=== PATIENT | female | born 1970 | race Caucasian/White ===

== ENCOUNTER 2020-06-22 13:06 | Outpatient (CLI) | payer OTHER, SELFPAY ==
--- NOTE | ~2020-06-22 | MMUS_ITS ---
EXAMINATION: MM diagnostic yarely BI w yosvany, US breast LT limited HISTORY: 2 left breast lumps TECHNIQUE: ML, MLO and CC 3-D tomosynthesis images of both breasts were performed and synthetic 2-D i mages were generated. CAD analysis was submitted and interpreted. High resolution targeted left breas t ultrasound was performed. COMPARISON: 10/10/2014, 07/01/2016 and 06/18/2019 bilateral digital mammogram examinations BREAST PARENCHYMAL COMPOSITION: There are scattered areas of fibroglandular density. FINDINGS: MAMMOGRAPHIC FINDINGS: There is stable mild fibroglandular asymmetry. No interval mass, architectural distortion, malignant calcification, skin thickening or retraction of either breast is evident since 06/18/2019 or 4. ULTRASOUND: No suspicious mass or shadowing is evident at the areas of clinical complaint of breast lump at 7:00 6 cm from the nipple and 9:00 near the nipple. IMPRESSION: 1. No mammographic evidence of malignancy 2. Routine mammographic screening is recommended. BI-RADS Category 2: Benign finding(s). Reviewed, dictated and finalized at location A. IMPRESSION: 1. No mammographic evidence of malignancy 2. Routine mammographic screening is recommended. BI-RADS Category 2: Benign finding(s).
== END 2020-06-22 13:07 | disposition home or self-care (01) ==
LOC: ANHIMG 13:11
DX: N63.20 Unspecified lump in the left breast, unspecified quadrant (principal)
CPT/HCPCS: 76642; 77062; 77066; G0279

== ENCOUNTER → 2021-06-19 11:36 | Outpatient (CLI) | payer OTHER, SELFPAY ==
--- NOTE | ~2021-06-19 | MM_ITS ---
EXAMINATION: MM screening yarely BI w yosvany HISTORY: Screening mammogram TECHNIQUE: Craniocaudal and mediolateral oblique 3-D tomosynthesis images were obtained and synthetic 2-D images were generated. CAD analysis was submitted and interpreted. COMPARISON: 06/22/2020 diagnostic bilateral mammogram and limited left breast ultrasound 06/18/2019 diagnostic bilateral mammogram and limited left breast ultrasound 07/01/2016 bilateral digital screening mammogram BREAST PARENCHYMAL COMPOSITION: There are scattered areas of fibroglandular density. FINDINGS: There is no evidence of suspicious mass, calcification, or architectural distortion to sugg est malignancy in either breast. There has been no suspicious interval change. IMPRESSION: 1. No mammographic evidence of malignancy. 2. Recommend routine screening mammography in one year. BI-RADS Category 1: Negative Reviewed, dictated and finalized at location A.
== END ==
DX: Z12.31 Encounter for screening mammogram for malignant neoplasm of breast (principal)
CPT/HCPCS: 77063; 77067

== ENCOUNTER 2022-08-14 10:48 | Outpatient (CLI) | payer OTHER, SELFPAY ==
[2022-08-14 20:00] LABS: Basophils Percent Auto 0.7 % (0.2-1.2); Eosinophils Absolute Auto 0.2 K/mm3 (0-0.3); Eosinophils Percent Auto 3.5 % (0-4.4); Hematocrit 42.7 % (37.0-47.0); Hemoglobin 13.7 g/dL (12.0-15.0); Immature Granulocyte Absolute 0.01 K/mm3 (0.00-0.031); Immature Granulocyte Percent A 0.2 % (0-0.5); Lymphocytes Absolute Auto 1.05 K/mm3 (0.9-3.2); Mean Corpuscular HGB Conc 32.1 g/dl (32-36); Mean Corpuscular Hemoglobin 31.2 pg (26-34); Mean Corpuscular Volume 97.3 fl (80-100); Mean Platelet Volume 11.9 fl (7.4-10.4); Monocytes Absolute Auto 0.3 K/mm3 (0.1-0.6); Neutrophils Percent Auto 65.6 % (45.5-73.1); Platelet Count Result 180 k/mm3 (150-375); Red Blood Count 4.39 M/mm3 (4.2-5.4); Red Cell Distribution Width 12.6 % (11.5-14.5); White Blood Count 4.6 K/mm3 (4.5-10.0)
[2022-08-14 20:09] LABS: Alanine Aminotransferase 24 U/L (6-35); Albumin Level 4.2 g/dL (3.5-5.1); Alkaline Phosphatase 61 U/L (38-126); Anion Gap 7 mmol/L (8-16); Aspartate Amino Transferase 52 U/L (14-36); Bilirubin,Total 0.5 mg/dL (0.2-1.3); Blood Urea Nitrogen 15 mg/dL (7-17); Calcium 9.1 mg/dL (8.4-10.2); Carbon Dioxide 25 mmol/L (22-30); Chloride 105 mmol/L (98-107); Cholesterol 177 mg/dL (0-200); Estimated Glomerular Filt Rate > 60; Glucose 97 mg/dL (65-110); HDL Direct 46 mg/dL; Potassium 4.6 mmol/L (3.4-5.0); Sodium 137 mmol/L (137-145); Triglycerides 120 mg/dL (<150)
[2022-08-14 20:20] LABS: LDL Cholesterol Direct 104 mg/dL
[2022-08-14 20:42] LABS: Vitamin D 25 Hydroxy 50.4 ng/mL
[2022-08-14 20:55] LABS: Hemoglobin A1C 5.3 % (<5.7)
== END 2022-08-14 10:49 | disposition home or self-care (01) ==
LOC: ANHGOSHLAB 10:52
PROVIDERS: PCP Family Medicine; Visit Provider Nurse Practitioner
DX: Z13.6 Encounter for screening for cardiovascular disorders (principal); R73.9 Hyperglycemia, unspecified; Z13.220 Encounter for screening for lipoid disorders; E55.9 Vitamin D deficiency, unspecified; E53.8 Deficiency of other specified B group vitamins; R53.83 Other fatigue
CPT/HCPCS: 36415; 80053; 80061; 82306; 82607; 83036; 85025

== ENCOUNTER 2023-01-27 00:34 | Day surgery (SDC) | payer OTHER, SELFPAY ==
[2023-01-23 15:54] VITALS: BMI 29.9
--- NOTE | 2023-01-23 15:59 | PC.NURSE ---
Report to the Outpatient Waiting Room, entrance under the green pavilion located off [facility], at time 0715 on date 01/27/23. Planned Procedure Time: 0915. Time changes happen often and if your time is changed the preop area will call you the afternoon before. - You and your visitor will be asked to self-screen and do not enter if you have any COVID symptoms. - Only one visitor is requested with a max of two and NO children visitors are allowed at this time. - The patient visitor may be requested to leave or wait in car when not with patient due to distancing restrictions. - A mask is optional within the hospital at this time. Patients may have clear liquids (water, carbonated beverages, clear teas, apple juice) until 3 hours prior to surgery with a maximum of 20 ounces. - No food from midnight until time of surgery Take the following medications with a SIP of water the morning of surgery: NONE DO NOT STOP ANY OF YOUR OTHER PRESCRIPTION MEDICATIONS PRIOR TO SURGERY EXCEPT THE FOLLOWING Medications to discontinue per physician: N/A Date to take last dose: N/A Please no make-up, nail filipino, hairspray, perfume, deodorant, or body powder the day of surgery. No jewelry (including any body piercings) or valuables the day of surgery, leave them at home. Please take a shower or bath the night before, or the morning of, surgery with an antibacterial soap. Wear comfortable, loose fitting clothing. - Jewelry must be removed prior to entering the operating room. Rings and piercings that are not removed may be cut off. - The hospital will not accept responsibility for valuables. - Please leave all valuables, including medications, at home the day of surgery. If you are going home after surgery, a licensed milk pickup truck driver must drive you home. - NO public transportation without another adult if you receive anesthesia. - We recommend that an adult stay with you for 24 hours following discharge. - We also recommend that you do not drive, make important decision, drink alcoholic beverages, or take any drugs that were not prescribed by your health care provider for at least 24 hours after your discharge time. Follow any additional instructions given to you from your surgeon. If you or anyone in your household have experienced Covid symptoms in the past week, please notify your surgeon or the nurse liaison at the phone number below for possible testing. Telephone instructions given to PT - NICOLE VEGA and asked if any additional questions and then verbalized understanding. Patient advised to call surgeon office or pre surgery nurse liaison [phone] if any additional questions.
[2023-01-27 06:38] VITALS: BP 123/81; PULSE 76; RESP 16; TEMP 36.5; O2SAT 100
[2023-01-27] MEDS: ACETAMINOPHEN 500 MG TABLET 1000 MG PO (06:42)
[2023-01-27] MEDS: LACTATED RINGERS 1,000 ML 30 ML IV CONT (06:55)
--- NOTE | 2023-01-27 07:07 | WPDHPUPDATE1 ---
History and Physical Update Update Date/Time: 01/27/23 07:07 History and Physical has been reviewed, including an updated exam of the patient. There are NO changes in the patient's condition. Risks, benefits, and alternatives have been discussed and questions answered. Patient agrees to proceed with procedure.
--- NOTE | 2023-01-27 07:07 | PM.HPGS ---
History of Present Illness History of Present Illness Consent: Risks, benefits, and alternatives have been discussed and questions answered. Patient agrees to proceed with procedure. Chief complaint: menorrhagia Narrative: Symone Medina is a 52 year old female with erratic and long cycles. Patient cycles range from every 14 days to every 60 days. Cycles last for up to 2 weeks at a time. It was recommended to proceed with D&C hysteroscopy. Risks of infection, bleeding, perforation, and possible pathology are discussed. Patient voices understanding and agrees to proceed. Review of Systems Review of Systems: not repeated day of surgery; patient states no changes in status [facility] Past Medical History Medical History (Updated 01/27/23 @ 07:10 by Eduarda Reyes MD) Anxiety and depression Migraines Vitamin D deficiency Surgical History Surgical History (Updated 01/27/23 @ 07:09 by Eduarda Reyes MD) History of appendectomy 2003 History of 2000, 2005 History of endometrial ablation Family History Family History Mother Patient's mother is in good health Father Patient's father is in good health Sibling Patient's brother is in good health Grandparent Family history of malignant neoplasm of bone, Onset Age: 86 Family history of malignant neoplasm of breast Cerebrovascular accident Family history of amyotrophic lateral sclerosis Social History Social History Smoking status: Never smoker Second hand tobacco smoke exposure: No Alcohol intake: current Alcohol use details: VERY RARE Substance use: never Substance use type: does not use Living arrangements: with family Occupation/Education: occupation Gender identity (if verbalized by the patient): Female Sexual Orientation (if Verbalized by the Patient): Straight or Heterosexual Spiritual care concerns: No Agree to blood products: Yes Meds Home Medications and Allergies Home Medications Medication Instructions Recorded Confirmed Type ueswgni-hnasgiaeojfci-qlpjuodl 250 1 tablet PO Q4-6H PRN Headache 06/09/20 01/27/23 History mg-250 mg-65 mg tablet (Excedrin Migraine) misoprostol 200 mcg tablet 200 mcg PO HS 01/23/23 01/27/23 History Allergies Allergy/AdvReac Type Severity Reaction Status Date / Time No Known Allergies Allergy Verified 01/27/23 06:41 Vital Signs Vital Signs - 24 hr 01/27/23 06:38 Temperature 97.7 F Pulse Rate 76 Respiratory Rate 16 Blood Pressure 123/81 Pulse Oximetry 100 Oxygen Delivery Room Air Exam Const: General: healthy appearing and alert Orientation/consciousness: patient oriented x3 Resp: Effort & Inspection: normal respiratory effort Auscultation: clear to auscultation bilaterally Cardio: Rate: regular rate Rhythm: regular rhythm GI: GI Palp: Yes Soft to palpation, No Tenderness to palpation present (GI) and No Palpable mass present : External Female Exam: normal external appearance Speculum Exam - Vagina: normal appearance of the vagina and normal vaginal discharge Speculum Exam - Cervix: normal appearance of the cervix Bimanual exam- vagina & uterus: uterine size normal and consistency normal Bimanual Exam- Adnexa, other: normal adnexae and No adnexal tenderness Neuro: General: patient oriented x3 Assessment and Plan Assessment and plan (1) Menorrhagia: Code(s): N92.0 - Excessive and frequent menstruation with regular cycle Status: Acute Assessment and Plan: plan to proceed with D&C hysteroscopy
--- NOTE | 2023-01-27 07:44 | P.PNAN_ITS ---
Anes - Initial Pre Proc Eval Procedure: Operation Date: 01/27/23 08:15 Proposed Procedures p Hysteroscopy Dilation and Curettage - Eduarda Reyes MD Date/Time: 01/27/23 07:44 Surgeon: Eduarda Reyes MD Pre Op Diagnosis: menorrhagia Patient Data Age: 52 Gender: F Height: 1.65 m Weight: 83.5 kg Last Vital Signs Temp 97.7 F 01/27/23 06:38 Pulse 76 01/27/23 06:38 Resp 16 01/27/23 06:38 BP 123/81 01/27/23 06:38 Pulse Ox 100 01/27/23 06:38 O2 Del Method Room Air 01/27/23 06:38 Allergies Allergy/AdvReac Type Severity Reaction Status Date / Time No Known Allergies Allergy Verified 01/27/23 06:41 Home Medications Medication Instructions Recorded Confirmed Type xtfguof-oetxwqokanbxu-qkpricfd 250 1 tablet PO Q4-6H PRN Headache 06/09/20 01/27/23 History mg-250 mg-65 mg tablet (Excedrin Migraine) misoprostol 200 mcg tablet 200 mcg PO HS 01/23/23 01/27/23 History Patient hx anesthesia problems: post op nausea/vomiting Family hx anesthesia problems: none Results Review: All pre-operative results and documents have been reviewed as part of the pre- operative evaluation. [facility] Past Medical History Medical History (Updated 01/27/23 @ 07:10 by Eduarda Reyes MD) Anxiety and depression Migraines Vitamin D deficiency Surgical History Surgical History (Updated 01/27/23 @ 07:09 by Eduarda Reyes MD) History of appendectomy 2003 History of 2000, 2005 History of endometrial ablation Family History Family History Mother Patient's mother is in good health Father Patient's father is in good health Sibling Patient's brother is in good health Grandparent Family history of malignant neoplasm of bone, Onset Age: 86 Family history of malignant neoplasm of breast Cerebrovascular accident Family history of amyotrophic lateral sclerosis Social History Social History Smoking status: Never smoker Second hand tobacco smoke exposure: No Alcohol intake: current Alcohol use details: VERY RARE Substance use: never Substance use type: does not use Living arrangements: with family Occupation/Education: occupation Gender identity (if verbalized by the patient): Female Sexual Orientation (if Verbalized by the Patient): Straight or Heterosexual Spiritual care concerns: No Agree to blood products: Yes Anes - Eval Final PreProcedure Day of Procedure 01/27/23 07:44 Patient weight: obese Heart: regular rate and rhythm Lungs: clear to auscultation Airway: Mallampati scale Neurological: alert and oriented Last oral intake: >/= 8 hours ASA classification: II Emergent: no Anesthetic plan: proceed Anesthesia type and monitoring: general GIVS and standard monitoring Results Review: All pre-operative results and documents have been reviewed as part of the pre- operative evaluation. Informed Consent: The patient's anesthetic plan and its attendant risks and benefits were discussed with the patient/family/POA. Questions were solicited and answers provided to the satisfaction of the patient/family/POA.
[2023-01-27] MEDS: LIDOCAINE HCL 1% LOCAL INJ 20 ML VIAL 10 ML INFILTRATE (08:06)
[2023-01-27 08:16] VITALS: BP 92/61; PULSE 68; RESP 14; O2SAT 99
--- NOTE | 2023-01-27 08:16 | P.OP_ITS ---
Procedure Note - Detailed Date of Procedure 01/27/23 Pre-op Diagnosis menorrhagia Post-op Diagnosis Same Procedure Performed D&C hysteroscopy Surgeon Eduarda Reyes MD Anesthesia MAC and Local Findings uterus sounds to 7cm and appears scarred consistent with prior ablation Description of Procedure The patient is taken to and placed under anesthesia in the dorsal lithotomy position. She was prepped and draped in usual sterile fashion. [place] speculum was placed in the vagina and the cervix grasped on the anterior lip with a tenaculum. The uterus is attempted to be sounded. Cervix is stenotic at the internal os. The os Finders are used to enter the cervix. The uterus is then sounded to 7cm. The diagnostic hysteroscope was placed with no abnormalities noted. This uterus is very scarred consistent with prior ablation. The hysteroscope was removed and the medium sharp curette used to curette the endometrium until a good uterine cry was noted in all areas. Minimal materials obtained consistent with the appearance. All instruments are removed. Sponge, needle, and instrument counts are correct per the OR staff. The patient was awakened from anesthesia and taken to recovery in stable condition. Estimated Blood Loss 5 Drains No Packing No Pathology Yes ( Endometrial curettings) Complications No immediate complications Condition Stable Disposition PACU
[2023-01-27 08:45] VITALS: BP 115/77; PULSE 64; RESP 14; O2SAT 100
[2023-01-27 09:10] VITALS: BP 107/77; PULSE 62; RESP 16
== END 2023-01-27 09:17 | disposition home or self-care (01) ==
PROVIDERS: PCP Family Medicine; Visit Provider Obstetrics & Gynecology Gynecology
PROC: 0U5B8ZZ Destruction of Endometrium, Via Natural or Artificial Opening Endoscopic (ICD-10-PCS; CPT 58563; principal; 2023-01-27 08:15)
DX: N92.0 Excessive and frequent menstruation with regular cycle (principal); E66.9 Obesity, unspecified; Z68.30 Body mass index [BMI] 30.0-30.9, adult
CPT/HCPCS: 58558; 88305; A9270; J2250; J2704; J3010; J7120

== ENCOUNTER 2023-05-16 09:07 | Emergency (ER) | payer OTHER, SELFPAY ==
--- NOTE | 2023-05-16 09:12 | ED.SKABFB ---
HPI - Skin/Abscess/Foreign Bdy General Chief complaint: Skin/Abscess/Foreign Body Stated complaint: left calf bug bite Time Seen by Provider: 05/16/23 09:10 Source: patient Mode of arrival: ambulatory Limitations: no limitations History of Present Illness HPI narrative: Symone is a 53-year-old female patient presenting to the clinic today with complaints of a insect bite to her left medial calf. She reports this occurred approximately 9-10 days ago. She denies any fever chills. Denies any pain currently. Has noticed it is becoming more red and starting to streak. She denies any discharge coming from the area. Does report that it itched slightly Related Data Home Medications Medication Instructions Recorded Confirmed gplyhlw-rvgpgffgebizi-vbfgncum 250 1 tablet PO Q4-6H PRN Headache 06/09/20 01/27/23 mg-250 mg-65 mg tablet (Excedrin Migraine) misoprostol 200 mcg tablet 200 mcg PO HS 01/23/23 01/27/23 Allergies Allergy/AdvReac Type Severity Reaction Status Date / Time No Known Allergies Allergy Verified 01/27/23 06:41 Review of Systems Review of Systems: Pertinent positives per HPI. Patient denies any fever, chills, rash, headache, visual changes, dizziness, cough, runny nose, sore throat, shortness of breath, chest pain, palpitations, nausea, vomiting, diarrhea, constipation, abdominal pain, or any urinary issues. [facility] Past Medical History Medical History Anxiety and depression Migraines Vitamin D deficiency Surgical History Surgical History History of appendectomy 2003 History of 2000, 2005 History of endometrial ablation Family History Family History Mother Patient's mother is in good health Father Patient's father is in good health Sibling Patient's brother is in good health Grandparent Family history of malignant neoplasm of bone, Onset Age: 86 Family history of malignant neoplasm of breast Cerebrovascular accident Family history of amyotrophic lateral sclerosis Social History Social History Smoking status: Never smoker Second hand tobacco smoke exposure: No Alcohol intake: current Alcohol use details: VERY RARE Substance use: never Substance use type: does not use Living arrangements: with family Occupation/Education: occupation Gender identity (if verbalized by the patient): Female Sexual Orientation (if Verbalized by the Patient): Straight or Heterosexual Spiritual care concerns: No Agree to blood products: Yes Comments At the time of my signature, I reviewed and agree with the nursing past medical, surgical, social, and family history. There is no relevant family history pertinent to the patient complaint. Exam Narrative: General: Well-developed, well nourished, in no apparent distress Head: Normocephalic, atraumatic. Cardio: Regular rate and rhythm, s1 and s2 normal, no murmur appreciated. Resp: Clear to auscultation bilaterally, no rhonchi, rales, wheezing or rubs. Integumentary: [place], warm, and dry, nickel sized red area to the left medial calf with red streaking to the posterior calf, 0.5 cm ulceration with yellowish crusting without drainage.mild induration without tenderness Course Course Emergency Course: Portions of this record may have been created with voice recognition software. Level of Care: Express Care Visit Vital Signs Vital signs: Vital signs reviewed MDM - Skin/Abscess/Foreign Bdy MDM Narrative Medical decision making narrative: At the time of visit patient is resting comfortably on the exam table. I suspect the patient has a insect bite that could be possibly becoming infected. Will send in prescription for doxycycline. Supportive measures were discussed
[2023-05-16 09:23] VITALS: BP 115/70; PULSE 75; RESP 16; TEMP 36.6; O2SAT 100
== END 2023-05-16 09:32 | disposition home or self-care (01) ==
PROVIDERS: Emergency Provider Nurse Practitioner Family
DX: S80.862A Insect bite (nonvenomous), left lower leg, initial encounter (principal); L08.9 Local infection of the skin and subcutaneous tissue, unspecified; W57.XXXA Bitten or stung by nonvenomous insect and other nonvenomous arthropods, initial encounter; Z79.82 Long term (current) use of aspirin
CPT/HCPCS: 99213; G0463

== ENCOUNTER 2023-06-18 13:30 | Outpatient (RCR) | payer OTHER, SELFPAY ==
[2023-05-28 09:48] VITALS: BMI 30.2
[2023-06-18 13:54] VITALS: BMI 29.2
[2023-06-18 14:45] VITALS: BMI 29.2
--- NOTE | 2023-07-17 16:20 | PCDIET ---
07/17/23 Short phone call contact: Wt home scale: 174# = 79 kg. Pt reports wt trending down, has adjusted target wt goal accordingly to hit target 170 lbs end of next month. Denies over restricting po intake; has increased vegetables daily, focusing on overall portion control. Plantar fasciitis and foot pain continue to interfere with activity - Discussed balance nutrition and minimum servings fruit/veg/dairy daily including definition of serving size. - Consider MyFitnessPal logging 1-2x/wk for focus and awareness - Ideas re: activity ie: chair exercises/talk with PT for ideas at home. - Follow up prn. (she has number) Phyllis Muse MS, RD, LDN, CDCES
== END 2023-07-17 16:25 | disposition home or self-care (01) ==
LOC: ANHDMC 13:30
PROVIDERS: PCP Family Medicine; Visit Provider Family Medicine
DX: R63.5 Abnormal weight gain (principal); Z71.3 Dietary counseling and surveillance
CPT/HCPCS: 97802; 97803

== ENCOUNTER 2023-06-23 08:30 | Outpatient (CLI) | payer OTHER, SELFPAY ==
--- NOTE | ~2023-06-23 | MM_ITS ---
EXAMINATION: MM screening yarely BI w yosvany HISTORY: Screening mammogram TECHNIQUE: Craniocaudal and mediolateral oblique 3-D tomosynthesis images were obtained and synthetic 2-D images were generated. CAD analysis was submitted and interpreted. COMPARISON: 06/19/2021 bilateral screening mammogram 06/22/2020 diagnostic bilateral mammogram and limited left breast ultrasound examination 06/18/2019 bilateral diagnostic mammogram and limited left breast ultrasound examination BREAST PARENCHYMAL COMPOSITION: There are scattered areas of fibroglandular density. FINDINGS: There is no evidence of suspicious mass, calcification, or architectural distortion to sugg est malignancy in either breast. There has been no suspicious interval change. IMPRESSION: 1. No mammographic evidence of malignancy. 2. Recommend routine screening mammography in one year. BI-RADS Category 1: Negative Reviewed, dictated and finalized at location A.
== END 2023-06-23 08:31 | disposition home or self-care (01) ==
LOC: ANHIMG 08:32
PROVIDERS: PCP Family Medicine; Visit Provider Obstetrics & Gynecology Gynecology
DX: Z12.31 Encounter for screening mammogram for malignant neoplasm of breast (principal)
CPT/HCPCS: 77063; 77067

== ENCOUNTER 2024-04-20 05:52 | Day surgery (SDC) | payer OTHER, SELFPAY ==
[2024-03-10 15:16] VITALS: BMI 29.3
[2024-04-20 06:17] VITALS: BP 110/80; PULSE 75; RESP 16; TEMP 37.1; O2SAT 99
[2024-04-20] MEDS: LACTATED RINGERS 1,000 ML 150 ML IV CONT (06:30)
--- NOTE | 2024-04-20 07:00 | PM.HPGS ---
History of Present Illness History of Present Illness Consent: Risks, benefits, and alternatives have been discussed and questions answered. Patient agrees to proceed with procedure. Chief complaint: Gerd, Iron Deficiency, Neoplasm Screening Narrative: Symone Medina is a 54 year old female Here for investigation of anemia and reflux symptoms. Review of Systems Review of Systems: All systems reviewed & are unremarkable except as noted in HPI and below PMFSH Past Medical History Medical History Anxiety and depression Body mass index (BMI) 23 or greater (06/07/16) Daytime somnolence Dry skin Follicular cyst of skin GERD without esophagitis History of hepatitis B virus infection conferring immunity Iron deficiency anemia due to chronic blood loss Major depression, recurrent, chronic Menometrorrhagia Migraines Other specified anxiety disorders Plantar fasciitis, bilateral Positive EVY (antinuclear antibody) Recurrent major depressive disorder, in full remission Vitamin D deficiency Surgical History Surgical History History of appendectomy 2003 History of 2000, 2005 History of D&C (~01/2023) History of endometrial ablation (~2013) Family History Family History Mother Patient's mother is in good health Father Patient's father is in good health Sibling Patient's brother is in good health Grandparent Family history of malignant neoplasm of bone, Onset Age: 86 Family history of malignant neoplasm of breast Cerebrovascular accident Family history of amyotrophic lateral sclerosis Social History Social History Smoking status: Never smoker Second hand tobacco smoke exposure: No Alcohol intake: current Alcohol use details: VERY RARE Substance use: never Substance use type: does not use Lack of Transportation: No Lack of Food: Never True Current Housing: I Have Housing Concerned About Future Housing: No Difficulty Paying Gas/Electric Bills: No Difficulty Paying for Meds: No Currently Unemployed: No Education: Master's Degree or Higher Difficulty w/ Childcare or Family Care: No Living arrangements: with family Occupation/Education: occupation Gender identity (if verbalized by the patient): Female Sexual Orientation (if Verbalized by the Patient): Straight or Heterosexual Spiritual care concerns: No Agree to blood products: Yes Meds Home Medications and Allergies Home Medications Medication Instructions Recorded Confirmed Type usscpoh-xtvegvhpxrsqi-mblvrxmh 250 1 tablet PO Q4-6H PRN Headache 06/09/20 04/20/24 History mg-250 mg-65 mg tablet (Excedrin Migraine) estradiol 4 mcg vaginal insert 4 mcg vaginal 2XW 04/09/24 04/20/24 History spironolactone 100 mg tablet 100 mg PO DAILY 04/09/24 04/20/24 History thyroid (pork) 90 mg tablet (DYNAMITE PACKING MACHINE FEEDER 90 mg PO DAILY 04/09/24 04/20/24 History Thyroid) Allergies Allergy/AdvReac Type Severity Reaction Status Date / Time No Known Allergies Allergy Verified 04/20/24 06:16 Vital Signs Vital Signs - 24 hr 04/20/24 06:17 Temperature 37.1 C Pulse Rate 75 Respiratory Rate 16 Blood Pressure 110/80 Pulse Oximetry 99 Oxygen Delivery Room Air Exam Const: General: alert Orientation/consciousness: patient oriented x3 Resp: Auscultation: clear to auscultation bilaterally Cardio: Rhythm: regular rhythm GI: GI Palp: Yes Soft to palpation and No Tenderness to palpation present (GI) Neuro: General: patient oriented x3 Assessment and Plan Assessment and plan (1) GERD without esophagitis: Code(s): K21.9 - Gastro-esophageal reflux disease without esophagitis Status: Acute Assessment and Plan: EGD with possible biopsy or dilatation or cautery. (2) Iron deficiency
--- NOTE | 2024-04-20 07:21 | WPDANESEPPF ---
Anes - Initial Pre Proc Eval Procedure: Operation Date: 04/20/24 07:30 Proposed Procedures p Esophagogastroduodenoscopy - Humberto Almendarez MD s Screening Colonoscopy - Humberto Almendarez MD Date/Time: 04/20/24 07:21 Surgeon: Humberto Almendarez MD Pre Op Diagnosis: Gerd, Iron Deficiency, Neoplasm Screening Patient Data Age: 54 Gender: F Height: 1.65 m Weight: 80.15 kg Last Vital Signs Temp 37.1 C 04/20/24 06:17 Pulse 75 04/20/24 06:17 Resp 16 04/20/24 06:17 BP 110/80 04/20/24 06:17 Pulse Ox 99 04/20/24 06:17 O2 Del Method Room Air 04/20/24 06:17 Allergies Allergy/AdvReac Type Severity Reaction Status Date / Time No Known Allergies Allergy Verified 04/20/24 06:16 Home Medications Medication Instructions Recorded Confirmed Type mvhluls-zppmwgdwfapau-fzlrwpgh 250 1 tablet PO Q4-6H PRN Headache 06/09/20 04/20/24 History mg-250 mg-65 mg tablet (Excedrin Migraine) estradiol 4 mcg vaginal insert 4 mcg vaginal 2XW 04/09/24 04/20/24 History spironolactone 100 mg tablet 100 mg PO DAILY 04/09/24 04/20/24 History thyroid (pork) 90 mg tablet (CORPORATE WEBMASTER 90 mg PO DAILY 04/09/24 04/20/24 History Thyroid) Patient hx anesthesia problems: none Family hx anesthesia problems: none Results Review: All pre-operative results and documents have been reviewed as part of the pre-operative evaluation. [facility] Past Medical History Medical History Anxiety and depression Body mass index (BMI) 23 or greater (06/07/16) Daytime somnolence Dry skin Follicular cyst of skin GERD without esophagitis History of hepatitis B virus infection conferring immunity Iron deficiency anemia due to chronic blood loss Major depression, recurrent, chronic Menometrorrhagia Migraines Other specified anxiety disorders Plantar fasciitis, bilateral Positive EVY (antinuclear antibody) Recurrent major depressive disorder, in full remission Vitamin D deficiency Surgical History Surgical History History of appendectomy 2004 History of 2000, 2005 History of D&C (~01/2023) History of endometrial ablation (~2013) Family History Family History Mother Patient's mother is in good health Father Patient's father is in good health Sibling Patient's brother is in good health Grandparent Family history of malignant neoplasm of bone, Onset Age: 86 Family history of malignant neoplasm of breast Cerebrovascular accident Family history of amyotrophic lateral sclerosis Social History Social History Smoking status: Never smoker Second hand tobacco smoke exposure: No Alcohol intake: current Alcohol use details: VERY RARE Substance use: never Substance use type: does not use Lack of Transportation: No Lack of Food: Never True Current Housing: I Have Housing Concerned About Future Housing: No Difficulty Paying Gas/Electric Bills: No Difficulty Paying for Meds: No Currently Unemployed: No Education: Master's Degree or Higher Difficulty w/ Childcare or Family Care: No Living arrangements: with family Occupation/Education: occupation Gender identity (if verbalized by the patient): Female Sexual Orientation (if Verbalized by the Patient): Straight or Heterosexual Spiritual care concerns: No Agree to blood products: Yes Anes - Eval Final PreProcedure Day of Procedure 04/20/24 07:21 Patient weight: overweight Heart: regular rate and rhythm Lungs: clear to auscultation Airway: Mallampati scale class II Neurological: alert and oriented Last oral intake: >/= 8 hours ASA classification: II Emergent: no Anesthetic plan: proceed Anesthesia type and monitoring: general GIVS and standard monitoring Results Review: All pre-operative results and documents sanchez
[2024-04-20 07:54] VITALS: BP 83/57; PULSE 64; RESP 15; O2SAT 100
[2024-04-20 08:04] VITALS: BP 96/80; PULSE 65; RESP 14; O2SAT 100
--- NOTE | 2024-04-20 08:05 | WPDANESPN ---
Anes - Prog Note Post-Op Date/Time: 04/20/24 08:05 Cardiovascular status: normal Respiratory status: normal Airway patency: baseline Mental status: baseline Post-Op hydration status: normal Vital Signs: Last Vital Signs Temp 37.1 C 04/20/24 06:17 Pulse 64 04/20/24 07:54 Resp 15 04/20/24 07:54 BP 83/57 L 04/20/24 07:54 Pulse Ox 100 04/20/24 07:54 O2 Del Method Room Air 04/20/24 07:54 Pain Score (VAS): 0/10 I/O: Intake & Output 04/19/24 04/20/24 04/20/24 23:59 07:59 15:59 Intake Total 600 Balance 600 Patient Feedback: Patient satisfied with anesthetic care.
[2024-04-20 08:14] VITALS: BP 105/73; PULSE 60; RESP 14; O2SAT 100
== END 2024-04-20 08:37 | disposition home or self-care (01) ==
PROVIDERS: PCP Family Medicine; Visit Provider Internal Medicine Gastroenterology
PROC: 0DJ08ZZ Inspection of Upper Intestinal Tract, Via Natural or Artificial Opening Endoscopic (ICD-10-PCS; CPT 43235; principal; 2024-04-20 07:30)
PROC: 0DJD8ZZ Inspection of Lower Intestinal Tract, Via Natural or Artificial Opening Endoscopic (ICD-10-PCS; CPT 45378; 2024-04-20 07:30)
DX: D50.9 Iron deficiency anemia, unspecified (principal); K21.9 Gastro-esophageal reflux disease without esophagitis; Z12.11 Encounter for screening for malignant neoplasm of colon; D12.5 Benign neoplasm of sigmoid colon; K21.00 Gastro-esophageal reflux disease with esophagitis, without bleeding; K29.70 Gastritis, unspecified, without bleeding
CPT/HCPCS: 45385; 43239

== ENCOUNTER 2024-04-20 07:00 | Outpatient (NON) | payer OTHER, SELFPAY | END 2024-04-20 07:01 | disposition home or self-care (01) | LOC: ANHLAB 04-21 07:01 | PROVIDERS: PCP Family Medicine; Visit Provider Internal Medicine Gastroenterology | DX: K22.89 Other specified disease of esophagus (principal); K21.9 Gastro-esophageal reflux disease without esophagitis; K29.80 Duodenitis without bleeding; D12.5 Benign neoplasm of sigmoid colon | CPT/HCPCS: 88305 ==

== ENCOUNTER 2024-06-24 09:02 | Outpatient (CLI) | payer OTHER, SELFPAY ==
--- NOTE | ~2024-06-24 | MM_ITS ---
EXAMINATION: MM screening [facility] BI w yosvany HISTORY: Screening TECHNIQUE: Craniocaudal and mediolateral oblique 3-D tomosynthesis images were obtained and synthetic 2-D images were generated. CAD analysis was submitted and interpreted. COMPARISON: Comparison to multiple prior studies sequentially, with oldest reviewed study dated 09/24. BREAST PARENCHYMAL COMPOSITION: There are scattered areas of fibroglandular density. FINDINGS: There is no evidence of suspicious mass, calcification, or architectural distortion to sugg est malignancy in either breast. There has been no suspicious interval change. IMPRESSION: 1. No mammographic evidence of malignancy. 2. Recommend routine screening mammography in one year. BI-RADS Category 1: Negative Reviewed, dictated and finalized at location B.
== END 2024-06-24 09:03 | disposition home or self-care (01) ==
PROVIDERS: PCP Family Medicine
DX: Z12.31 Encounter for screening mammogram for malignant neoplasm of breast (principal)
CPT/HCPCS: 77063; 77067

== ENCOUNTER 2024-07-29 19:38 | Emergency (ER) | payer OTHER, SELFPAY ==
[2024-07-29 19:51] VITALS: BP 130/84; PULSE 87; RESP 16; TEMP 36.6; O2SAT 98
[2024-07-29 19:54] VITALS: BP 130/84; PULSE 87; RESP 16; TEMP 36.6; O2SAT 98
--- NOTE | 2024-07-29 20:04 | ED.ABDPAIN ---
HPI - Abdominal Pain General Chief Complaint: Urogenital-Female Stated Complaint: Uti Symptoms Time Seen by Provider: 07/29/24 20:04 Source: patient, RN notes reviewed and old records reviewed Mode of arrival: ambulatory Limitations: no limitations History of Present Illness HPI narrative: patient presents with complaints of urinary frequency and burning. She denies any back pain or abdominal pain. She denies any fever, chills, sweats. She denies any nausea or vomiting. Symptoms since this morning, taking azo with good relief. Related Data Home Medications Medication Instructions Recorded Confirmed vkqtxer-jonmqzbjcwovr-nctrxczd 250 1 tablet PO Q4-6H PRN Headache 06/09/20 04/20/24 mg-250 mg-65 mg tablet (Excedrin Migraine) estradiol 4 mcg vaginal insert 4 mcg vaginal 2XW 04/09/24 04/20/24 spironolactone 100 mg tablet 100 mg PO DAILY 04/09/24 04/20/24 thyroid (pork) 90 mg tablet (EYE GLASS FRAME POLISHER 90 mg PO DAILY 04/09/24 04/20/24 Thyroid) Arginine-500 07/29/24 Vitamin D3 07/29/24 cholecalciferol (vitamin D3) 125 07/29/24 mcg (5,000 unit) tablet (Vitamin D3) semaglutide (weight loss) 07/29/24 spironolactone 100 mg tablet 100 mg PO DAILY 07/29/24 07/29/24 testosterone-anastrozole 07/29/24 Allergies Allergy/AdvReac Type Severity Reaction Status Date / Time No Known Allergies Allergy Verified 07/29/24 20:01 Review of Systems Review of Systems: All systems reviewed & are unremarkable except as noted in HPI and below Constitutional: Constitutional: Reports as per HPI and Reports no additional constitutional complaints ENT: Reports system reviewed and no additional complaints, except as documented Cardiovascular: Cardiovascular: Reports as per HPI and Reports no additional cardiovascular complaints Respiratory: Respiratory: Reports as per HPI and Reports no additional respiratory complaints Gastrointestinal: Gastrointestinal: Reports as per HPI and Reports no additional gastrointestinal complaints Genitourinary: Genitourinary: Reports no additional female genitourinary complaints, Reports as per HPI, Reports dysuria, Denies flank pain and Reports urinary urgency PMFSH Past Medical History Medical History Anxiety and depression Body mass index (BMI) 23 or greater (06/07/16) Daytime somnolence Dry skin Follicular cyst of skin GERD without esophagitis History of hepatitis B virus infection conferring immunity Iron deficiency anemia due to chronic blood loss Major depression, recurrent, chronic Menometrorrhagia Migraines Other specified anxiety disorders Plantar fasciitis, bilateral Positive EVY (antinuclear antibody) Recurrent major depressive disorder, in full remission Vitamin D deficiency Surgical History Surgical History History of appendectomy 2003 History of 2000, 2005 History of D&C (~01/2023) History of endometrial ablation (~2013) Family History Family History Mother Patient's mother is in good health Father Patient's father is in good health Sibling Patient's brother is in good health Grandparent Family history of malignant neoplasm of bone, Onset Age: 86 Family history of malignant neoplasm of breast Cerebrovascular accident Family history of amyotrophic lateral sclerosis Social History Social History Smoking status: Never smoker Second hand tobacco smoke exposure: No Alcohol intake: current Alcohol use details: VERY RARE Substance use: never Substance use type: does not use Lack of Transportation: No Lack of Food: Never True Current Housing: I Have Housing Concerned About Future Housing: No Difficulty Paying Gas/Electric Bills: No Difficulty Paying for Meds: No Currently Unemployed: No Education: Master's Degree or Hig
[2024-07-29 20:05] LABS: EDUAAPPEAR Clear; EDUABILI Negative; EDUABLOOD 1+; EDUACOLOR1 Orange; EDUAGLUCOSE Negative; EDUAKETONE Trace; EDUALEUKO Trace; EDUANITRATE Positive; EDUAPH 5.5; EDUAPROTEIN Negative; EDUASPGRAVITY 1.015; EDUAUROBILI 0.2
== END 2024-07-29 20:26 | disposition home or self-care (01) ==
PROVIDERS: Emergency Provider Nurse Practitioner Family
DX: N39.0 Urinary tract infection, site not specified (principal); B96.20 Unspecified Escherichia coli [E. coli] as the cause of diseases classified elsewhere; K21.9 Gastro-esophageal reflux disease without esophagitis
CPT/HCPCS: 81003; 87077; 87086; 87088; 87186; 99213; G0463

== ENCOUNTER 2025-06-27 07:09 | Outpatient (CLI) | payer OTHER, SELFPAY ==
--- NOTE | ~2025-06-27 | MM_ITS ---
EXAMINATION: MM screening yarely BI w yosvany HISTORY: Screening TECHNIQUE: Craniocaudal and mediolateral oblique 3-D tomosynthesis images were obtained and synthetic 2-D images were generated. CAD analysis was submitted and interpreted. COMPARISON: Comparison to multiple prior studies sequentially, with oldest reviewed study dated 08/24. BREAST PARENCHYMAL COMPOSITION: There are scattered areas of fibroglandular density. FINDINGS: There is no evidence of suspicious mass, calcification, or architectural distortion to sug gest malignancy in either breast. IMPRESSION: 1. No mammographic evidence of malignancy. 2. Recommend routine screening mammography in one year. BI-RADS Category 1: Negative Reviewed, dictated and finalized at location B.
--- OUTSIDE RECORDS SUMMARY | 2025-06-27 07:14 | XMS_ITS | Clinical Summary ---
Author Organization [facility] Address [address] [place] [address] Care Team Providers Care Acls Nurse Name Role Phone Leah Bishop MD Primary Care Provider Allergies No known active allergies Medications acetaminophen-a spirin-caffeine (EXCEDRIN MIGRAINE) 250-250-65 mg per tablet Take 1 tablet by mouth every 6 (six) hours as needed Active buPROPion XL (WELLBUTRIN XL) 150 mg 24 hr tablet 01/02/2022 Active estradioL (VIVELLE-DOT) 0.0375 mg/[address] 1 patch on the skin 2 (two) times a week 8 patch 11 03/21/2022 Active calcium carbonate-vitam in D3 1,250mg (500mg elemental) - 5 mcg (200 units) per tablet Take 1 tablet by mouth once a week Active progesterone (PROMETRIUM) 100 mg capsule Take 1 capsule (100 mg total) by mouth daily 90 capsule 3 03/21/2022 Active Active Problems Problem Noted Date Diagnosed Date Perimenopausal vasomotor symptoms 03/21/2022 Assessment & Plan (03/21/2022 8:55 AM CDT): We discussed her vasomotor symptoms which are negatively impacting her quality of life. She is interested in pharmacotherapy. We reviewed that hormone replacement therapy is the gold standard for relieving frequency and severity of menopausal symptoms. Other options that are nonhormonal exist such as the antidepressant Effexor or SSRIs, may decrease frequency of vasomotor symptoms. Regarding HRT, we discussed that the recommended approach is to use the lowest dose possible to achieve symptom relief for the shortest amount of time. For woman who have had a hysterectomy, estrogen alone therapy can be used, however when women have a uterus they need combination therapy with progestin in order to prevent unopposed estrogen on the endometrium. For women who cannot take estrogen, micronized progesterone 300 mg nightly may decrease vasomotor symptoms and help improve sleep. Risks include breast cancer, VTE, SD, stroke. Benefits are most likely to outweigh risks for women initiating HRT at ages <60 or within 10 yrs of menopause onset. Pt desires to use estradiol patch, PO prometrium. History of endometrial ablation 07/01/2019 Overview (07/01/2019): -History of endometrial ablation in December 2016. -Presents 07/01/19 reporting continued monthly menses, cyclical pain and dyspareunia. -Not interested in medical management, will consider hysterectomy. Assessment & Plan (03/21/2022 8:15 PM CDT): Ongoing monthly menses, minimal cramping. Continue observation - considering hysterectomy as needed for persistent bothersome bleeding. Vitamin D deficiency 04/09/2014 Overview (03/06/2017): VITAMIN D DEFICIENCY NOS Resolved Problems Problem Noted Date Diagnosed Date Resolved Date Menstrual disorder 04/09/2014 0 Overview (03/06/2017): MENSTRUAL DISORDER NOS Immunizations Immunization Administration Dates Next Due Tdap 05/29/2011 Surgical History Surgery Date Site/Laterality Comments APPENDECTOMY Appendectomy SECTION section TUBAL LIGATION Bilateral tubal ligation DILATION AND CURETTAGE, DIAGNOSTIC / THERAPEUTIC 11/24/2016 - 11/23/2017 Hysteroscopy with D&C endometrial ablation TUBAL LIGATION SECTION 11/24/2000 - 11/23/2001 x2- 2000 & 2006 APPENDECTOMY 11/24/2002 - 11/23/2003 Medical History Medical History Date Comments Anxiety and depression History of endometrial ablation Family History Medical History Relation Name Comments Hypertension Father ALS Maternal Grandmother Stroke Mother Coronary artery disease Paternal Grandfather Breast cancer Paternal Grandmother Colon cancer Neg Hx Ovarian cancer Neg Hx Uterine cancer Neg Hx Relation Name Status Comments Father Alive Maternal Grandmother Mother Paternal Grandfather Paternal Grandmother Social History Tobacco Use Types Packs/Day Years Used Date Smoking Tobacco: Never Smokeless Tobacco: Never Alcohol Use Standard Drinks/Week Comments Yes 0 (1 standard drink = 0.6 oz pur e alcohol) Humiliation, Afraid, Rape, and Kick questionnair e Answer Date Recorded Fear of Current or Ex-Partner No Emotionally Abused No 07/01/2019 Physically Abused No 07/01/2019 Sexually Abused No 07/01/2019 Comments No Sex and Gender Information Value Date Recorded Sex Assigned at Not on file Legal Sex Female 8:49 AM CARDIOLOGY ASSOCIATE Gender Identity Not on file Sexual Orientation Not on file Obstetrics History Para Term AB IAB SAB Ectopic Multiple Livin g Live Births 2 2 2 Date Outcome GA Total Labor Labor/2nd/3rd Weight Sex Type Anes PTL Valentina A1 A5 Name Clin 2000 Term CS-Unsp ec 2005 Term CS-Unsp ec Last Filed Vital Signs Vital Sign Reading Time Taken Comments Blood Pressure 110/68 03/21/2022 8:08 AM CDT Pulse 94 01/16/2022 4:37 PM CARDIOLOGY ASSOCIATE Temperature 36.7 C (98.1 F) 01/16/2022 4:37 PM CARDIOLOGY ASSOCIATE Respiratory Rate 18 01/16/2022 4:37 PM CARDIOLOGY ASSOCIATE Oxygen Saturation 98% 01/16/2022 4:37 PM CARDIOLOGY ASSOCIATE Inhaled Oxygen Concentration - - Weight 85 kg (187 lb 6.4 oz) 03/21/2022 8:08 AM CDT Height 165.1 cm (5' 5) 03/21/2022 8:08 AM CDT Body Mass Index 31.18 03/21/2022 8:08 AM CDT Plan of Treatment Not on file Insurance [facility] CHOICE PLUS Care Teams Acls Nurse Relationship Specialty Start Date End Date Leah Bishop MD PCP - General Family Practice 01/16/22
--- OUTSIDE RECORDS SUMMARY | 2025-06-27 07:14 | XMS_ITS | Clinical Summary ---
Author Organization [facility] Address [address] [place] [address] Care Team Providers Care Corporate Relations Director Name Role Phone Unavailable Primary Care Provider Unavailabl e Medications miSOPROStoL (Cytotec) 200 mcg tablet TAKE 5 TABLETS BY MOUTH AT BEDTIME DAILY FOR 7 NIGHTS (TOTAL 1,000MCG EACH NIGHT). 35 Tablet 01/19/2023 1:57 PM NURSING CONSULTANT 01/16/20 23 Active meloxicam (MOBIC) 15 mg tablet Take 1 Tablet (15 mg) by mouth daily. 30 Tablet 2 02/11/20 23 Active tirzepatide (Mounjaro) 2.5 mg/0.5 mL Pen Injector INJECT 2.5 MG SUBCUTANEOUSLY ONCE WEEKLY. 2 mL 02/18/20 23 Active ergocalciferol (Vitamin D2) 50,000 unit capsule Take 1 Capsule (50,000 Units) by mouth every 7 days. 12 Capsule 2 05/04/2024 7:07 PM CDT 05/22/20 23 Active ergocalciferol (VITAMIN D2) 50,000 unit capsule Take 1 Capsule (50,000 Units) by mouth every 7 days. 12 Capsule 4 08/14/2024 11:43 AM CDT 02/02/20 24 Active thyroid, pork, (ROLLING MACHINE TENDER Thyroid) 90 mg tablet Take 1 Tablet (90 mg) by mouth daily in the morning, AT LEAST 30 MINUTES PRIOR TO MEDS/SUPPLEMENTS/C OFFEE/FOOD. 90 Tablet 3 05/02/2024 10:18 AM CDT 02/24/20 24 Active spironolactone (ALDACTONE) 100 mg tablet TAKE 1/2 TO 1 TABLET BY MOUTH EVERY MORNING TO PREVENT FACIAL HAIR AND ACNE. 90 Tablet 3 05/04/2024 7:07 PM CDT 04/02/20 24 Active diclofenac sodium (VOLTAREN) 75 mg Tablet, Delayed Release (E.C.) Take 1 Tablet (75 mg) by mouth 2 times daily. 60 Tablet 1 04/14/2024 7:09 PM CDT 04/14/20 24 Active spironolactone (ALDACTONE) 100 mg tablet Take 1.5 (150 mg) - 2.0 (200 mg) tablets by mouth daily in the morning to prevent facial hair, acne, and swelling. 180 Tablet 3 05/10/2025 3:53 PM CDT 05/11/20 24 Active phenazopyridin e 100 mg tablet Take 1 Tablet (100 mg) by mouth 3 times daily as needed for pain for 6 doses. 6 Tablet 08/02/2024 7:18 PM CDT 08/02/20 24 Active ROLLING MACHINE TENDER Thyroid 90 mg tablet Take 1 tablet (90 mg) by mouth every morning, at least 30 minutes before food/meds/suppleme nts/coffee. 90 Tablet 3 06/02/2025 9:19 AM CDT 12/28/19 25 Active nitrofurantoin (MACROBID) 100 mg capsule Take 1 Capsule (100 mg) by mouth every 12 hours for 5 days. 10 Capsule 06/02/2025 9:19 AM CDT 05/30/20 25 025 Encounters Date Type Department Care Team Description 06/08/2025 External Device Data [facility] ABSTRACTION Provider, Abstract 06/07/2025 External Device Data [facility] ABSTRACTION Provider, Abstract 05/24/2025 8:55 AM CDT - 05/24/2025 11:59 PM CDT Hospital Encounter [facility] [place] [address] [place] [address] Gwen Hoyt FNP Discharge Disposition: Home or Self Care 05/24/2025 8:55 AM CDT - 05/24/2025 11:59 PM CDT Hospital Encounter [facility] [address] [address] Treasure Ledezma MD Discharge Disposition: Home or Self Care 05/10/2025 External Device Data [facility] ABSTRACTION Provider, Abstract 04/14/2025 External Device Data [facility] ABSTRACTION Provider, Abstract 04/13/2025 External Device Data [facility] ABSTRACTION Provider, Abstract 04/12/2025 External Device Data [facility] ABSTRACTION Provider, Abstract 03/29/2025 External Device Data [facility] ABSTRACTION Provider, Abstract from Last 3 Months Social History Tobacco Use Types Packs/Day Years Used Date Smoking Tobacco: Never Assessed Comments Unknown Sex and Gender Information Value Date Recorded Sex Assigned at Not on file Legal Sex Female 3:31 AM NURSING CONSULTANT Gender Identity Not on file Sexual Orientation Not on file Plan of Treatment Health Maintenance Due Date Last Done Comments HEPATITIS B VACCINES (1 of 3 - 19+ 3-dose series) 02/23 HPV/Cotest (21-29) 1992 CERVICAL CANCER SCREENING 2001 HPV/Cotest (30-65) 2001 PAP SMEAR 2001 COLORECTAL SCREENING 2016 Colorectal Cancer Screening 2016 FIT-DNA Q 3 years 2016 FIT/FOBT Q 1 year 2016 Flex Sig/CT Colonography Q 5 years 2016 ZOSTER VACCINE (1 of 2) 2021 DTAP/TDAP/TD VACCINES (2 - Td or Tdap) 05/29/2021 BREAST CANCER SCREENING 06/19/2022 06/19/2021 INFLUENZA VACCINE (#1) 2025 12/01/2017 Procedures Procedure Name Priority Date/Time Associated Diagnosis Comments CT BONE DENS STUDY 1+ SITE AXIAL Routine 05/24/2025 10:52 AM CDT Encounter for osteoporosis screening in asymptomatic postmenopausal patient Encounter for screening for osteoporosis Obesity, unspecified Body mass index 30.0-30.9, adult US PELVIS + TRANSVAG NON OB Routine 05/24/2025 9:37 AM CDT Premenopausal menorrhagia Female climacteric state from Last 3 Months Results * CT BONE DENS STUDY 1+ SITE AXIAL (05/24/2025 10:52 AM CDT) Anatomical Region Laterality Modality Computed Tomogra phy 05/24/2025 10:5 2 AM CDT Narrative 05/24/2025 3:23 PM CDT EXAM: CT BONE DENS STUDY 1+ SITE AXIAL STUDY DATE05/24/2025 10:52 AM INDICATION: Screening for osteoporosis Attached is the QCT Bone Mineral Density Reports for SYMONE VEGA. For the spine, a true volumetric BMD measurement was made and, rather than using T-Scores, was compared to guideline thresholds from the [employer]. For the hip, a DXA-equivalent T-Score was calculated for comparison to the WHO classification at the proximal femur. This T-Score may also be used for fracture risk probability calculation in the WHO FRAX tool with T-Score as the appropriate DXA setting. INCIDENTAL LIMITED CT FINDINGS: NONE. Procedure Note Pilar Nguyen MD - 05/24/2025 EXAM: CT BONE DENS STUDY 1+ SITE AXIAL STUDY DATE05/24/2025 10:52 AM INDICATION: Screening for osteoporosis Attached is the QCT Bone Mineral Density Reports for SYMONE VEGA. For the spine, a true volumetric BMD measurement was made and, rather than using T-Scores, was compared to guideline thresholds from the [employer]. For the hip, a DXA-equivalent T-Score was calculated for comparison to the WHO classification at the proximal femur. This T-Score may also be used for fracture risk probability calculation in the WHO FRAX tool with T-Score as the appropriate DXA setting. INCIDENTAL LIMITED CT FINDINGS: NONE. Gwen Hoyt [facility] ORDERABLES Final Re sult * US PELVIS + TRANSVAG NON OB (05/24/2025 9:37 AM CDT) Anatomical Region Laterality Modality Pelvis Ultrasound 05/24/2025 9:40 AM CDT Impressions 05/25/2025 12:23 PM CDT IMPRESSION: 1. Dilated fluid-filled left adnexal tubular structure possibly left hydrosalpinx. 2. Two small uterine fibroids. Narrative 05/25/2025 12:23 PM CDT EXAMINATION: PELVIC ULTRASOUND, TRANSABDOMINAL AND TRANSVAGINAL WITH DOPPLER DATE: 05/24/2025 9:37 AM HISTORY: Premenopausal menorrhagia COMPARISON: Pelvic ultrasound 05/24/2025 TECHNIQUE: Standard transabdominal and transvaginal protocol was performed including cook scale and color Doppler images with spectral waveform analysis. FINDINGS: 7.3 x 3.9 x 4.8 cm uterus. 1.8 anterior and 1.4 cm posterior uterine fibroids. 5 mm thickness endometrial complex. 2.3 x 2.0 x 1.5 cm right ovary contains a small 12 mm cyst/follicle. 2.5 x 1.7 x 1.6 cm left ovary contains a small cyst/follicle. Blood flow present to both ovaries. A fluid-filled tubular structure in the left adnexa may be a dilated fallopian tube/hydrosalpinx. No free pelvic fluid. Procedure Note Jamie Brewster MD - 05/25/2025 EXAMINATION: PELVIC ULTRASOUND, TRANSABDOMINAL AND TRANSVAGINAL WITH DOPPLER DATE: 05/24/2025 9:37 AM HISTORY: Premenopausal menorrhagia COMPARISON: Pelvic ultrasound 05/24/2025 TECHNIQUE: Standard transabdominal and transvaginal protocol was performed including cook scale and color Doppler images with spectral waveform analysis. FINDINGS: 7.3 x 3.9 x 4.8 cm uterus. 1.8 anterior and 1.4 cm posterior uterine fibroids. 5 mm thickness endometrial complex. 2.3 x 2.0 x 1.5 cm right ovary contains a small 12 mm cyst/follicle. 2.5 x 1.7 x 1.6 cm left ovary contains a small cyst/follicle. Blood flow present to both ovaries. A fluid-filled tubular structure in the left adnexa may be a dilated fallopian tube/hydrosalpinx. No free pelvic fluid. IMPRESSION: 1. Dilated fluid-filled left adnexal tubular structure possibly left hydrosalpinx. 2. Two small uterine fibroids. Treasure Ledezma MD ORDERABLES Final Result from Last 3 Months Insurance [employer]
--- OUTSIDE RECORDS SUMMARY | 2025-06-27 07:15 | XMS_ITS | Referral Summary ---
Author Organization [facility] Address [address] [place] [address] Care Team Providers Care Investigator Internal Revenue Name Role Phone Leah Bishop MD Primary [...] improve sleep. Risks include breast cancer, VTE, [place], stroke. Benefits are most likely to outweigh [...] Immunization Administration Dates Next Due Tdap 05/29/2011 Social History Tobacco Use Types Packs/Day Years [...] on file Legal Sex Female 8:49 AM UTILIZATION REVIEWER Gender Identity Not on file Sexual Orientation Not on file Last Filed Vital Signs Vital Sign Reading Time Taken Comments Blood Pressure 110/68 03/21/2022 8:08 AM CDT Pulse 94 01/16/2022 4:37 PM UTILIZATION REVIEWER Temperature 36.7 C (98.1 F) 01/16/2022 4:37 PM UTILIZATION REVIEWER Respiratory Rate 18 01/16/2022 4:37 PM UTILIZATION REVIEWER Oxygen Saturation 98% 01/16/2022 4:37 PM UTILIZATION REVIEWER Inhaled Oxygen Concentration - - Weight 85 kg (187 lb 6.4 oz) 03/21/2022 8:08 AM CDT Height 165.1 cm (5' 5) 03/21/2022 8:08 AM CDT Body Mass Index 31.18 03/21/2022 8:08 AM CDT Plan of Treatment Not on file Insurance [facility] CHOICE PLUS Care Teams Investigator Internal Revenue Relationship Specialty Start Date End Date Leah Bishop MD PCP - General Family Practice 01/16/22
--- OUTSIDE RECORDS SUMMARY | 2025-06-27 07:15 | XMS_ITS | Clinical Summary ---
Author Organization [facility] Address [address] [place] [address] Care Team Providers Care Assembler Billiard Table Name Role Phone Chris Treviño MD Primary Care Provider [phone] Source Comments [facility],non-owned Affiliates and Associated Physician Practices is amultiple site organization consisting of ambulatory clinics and hospital sitesin [place], [place], [place] and [place]. This disclosure is being madepursuant to the Care Everywhere program and may not contain all information available regarding this patient. Last updated 18.[facility] [employer] Allergies No known active allergies Medications * Be aware that medications may not be up to date on this document. Alwaysverify current medications with the patient. No known medications Immunizations Immunization Administration Dates Next Due INFLUENZA VACCINE, QUADR. (F LUZONE; FLULAVAL; FLUARIX; AFLURIA QUADRIVALENT; 6MO+), 0.5 ML (IIV4) 12/01/2017 Family History Medical History Relation Name Comments Other Mother negative family health hx Relation Name Status Comments Mother Social History Tobacco Use Types Packs/Day Years Used Date Smoking Tobacco: Never Smokeless Tobacco: Never Comments No Sex and Gender Information Value Date Recorded Sex Assigned at Not on file Legal Sex Female 10:39 AM CDT Gender Identity Not on file Sexual Orientation Not on file Last Filed Vital Signs Vital Sign Reading Time Taken Comments Blood Pressure 120/86 06/30/2017 6:41 PM CDT Pulse 82 06/30/2017 6:41 PM CDT Temperature 37.1 C (98.7 F) 06/30/2017 6:41 PM CDT Respiratory Rate 16 06/30/2017 6:41 PM CDT Oxygen Saturation 98% 06/30/2017 6:41 PM CDT Inhaled Oxygen Concentration - - Weight 70.8 kg (156 lb) 06/30/2017 6:41 PM CDT Height 166.4 cm (5' 5.5) 06/30/2017 6:41 PM CDT Body Mass Index 25.56 06/30/2017 6:41 PM CDT Plan of Treatment Health Maintenance Due Date Last Done Comments COLOGUARD (AGES 45-75) - COL ON CA SCREENING 1971 COLON MONITORING 1971 COLONOSCOPY - COLON CA SCREENING 1971 CT COLONOGRAPHY - COLON CA SCREENING 1971 Colorectal Cancer Screening 1971 FIT - COLON CA SCREENING 1971 FLEX SIG - COLON CA SCREENING 1971 LIPID TESTING 1971 MAMMOGRAM 1971 HIV SCREENING 1986 HEPATITIS C SCREENING 03/11/1989 DTAP/TDAP/TD VACCINES (1 - Tdap) 1990 HEPATITIS B VACCINE (1 of 3 - 19+ 3-dose series) 1990 PAP SMEAR 1992 SCREENING FOR DIABETES 06/30/2017 PNEUMOCOCCAL VACCINE 50+ (1 of 1 - PCV) 2021 ZOSTER VACCINE (1 of 2) 2021 COVID-19 VACCINE (1 - 2023-2 5 season) 2024 DEPRESSION SCREENING 11/24/2024 INFLUENZA VACCINE (#1) 2025 12/01/2017 HIB VACCINE Aged Out No longer eligi ble based on patient's age to complete this topic HPV VACCINE Aged Out No longer eligi ble based on patient's age to complete this topic MENINGOCOCCAL (Group B) VACC INE SHARED DECISION-MAKING Aged Out No longer eligibl e based on patient's age to complete this topic MENINGOCOCCAL GROUPS A/C/Y/W VACCINE Aged Out No longer eligible b ased on patient's age to complete this topic Insurance [facility] * Guarantor: NICOLE VEGA Account Type Relation to Patient Date of Phone Billing Address Personal/Family [address] CARE SELF PAY NO INSURANCE Member Subscriber Plan / Payer (Ef fective for All Dates) Name:Nicole Vega Member ID:Not on file Relation to Subscriber:Not on file Name:NICOLE VEGA Subscriber ID:Not on file Address: [address] [place] [address] Payer ID:Not on file Group ID:Not on file Type:Self Pay Address: [place], [place] * Guarantor: NICOLE VEGA Account Type Relation to Patient Date of Phone Billing Address Personal/Family [address] HEALTH CARE SELF PAY NO INSURANCE Member Subscriber Plan / Payer (Ef fective for All Dates) Name:Nicole Vega Member ID:Not on file Relation to Subscriber:Not on file Name:NICOLE VEGA Subscriber ID:Not on file Address: [address] [address] Payer ID:Not on file Group ID:Not on file Type:Self Pay Address: [place], [place] * Guarantor: NICOLE VEGA Relation to Patient Date of Phone Billing Address Personal/Family [address] HEALTH CARE SELF PAY NO INSURANCE Member Subscriber Plan / Payer (Ef fective for All Dates) Name:Nicole Vega Member ID:Not on file Relation to Subscriber:Not on file Name:NICOLE VEGA Subscriber ID:Not on file Address: [address] [address] Payer ID:Not on file Group ID:Not on file Type:Self Pay Address: [place], [place] Care Teams Assembler Billiard Table Relationship Specialty Start Date End Date Chris Treviño MD [address] [place] [address] PCP - General Family Medicine 12/01/17
--- OUTSIDE RECORDS SUMMARY | 2025-06-27 07:15 | XMS_ITS | Encounter Summary ---
Author Organization [facility] Address 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
== END 2025-06-27 07:10 | disposition home or self-care (01) ==
PROVIDERS: PCP Family Medicine
DX: Z12.31 Encounter for screening mammogram for malignant neoplasm of breast (principal)
CPT/HCPCS: 77063; 77067